=== PATIENT | female | born 1965 | race Caucasian/White ===

== ENCOUNTER 2021-09-20 21:34 | Emergency (ER) | payer BC ==
--- NOTE | 2021-09-20 21:38 | ERPHSYRPT ---
- History of Present Illness Time Seen by Provider: 09/20/21 21:37 Source: patient Exam Limitations: no limitations Physician History: This is a morbidly obese 55-year-old white female who [place] and underwent an excision of left foot neuroma 4 days ago. She now presents with redness and swelling and tenderness of her right foot and ankle. Is a dorsal aspect primarily of her right foot that was not operated on. Patient called her surgeon. Her surgeon told her to go to the emergency department to be evaluated for a DVT. Patient has no cough. She has no shortness of breath. Timing/Duration: today Severity: mild Modifying Factors: Improves With: nothing Associated Symptoms: denies symptoms Allergies/Adverse Reactions: codeine Allergy (Verified 09/20/21 22:02) vortioxetine Allergy (Verified 09/20/21 22:02) zolpidem [From Ambien] Allergy (Verified 09/20/21 22:02) Travel Risk - International Travel Have you traveled outside of the country in past 3 weeks: No - Coronavirus Screening Are you exhibiting any of the following symptoms?: No Close contact with a COVID-19 positive Pt in past 14-21 Days: No - Review of Systems Constitutional: No Symptoms Eyes: No Symptoms Ears, Nose, & Throat: No Symptoms Respiratory: No Symptoms Cardiac: No Symptoms Abdominal/Gastrointestinal: No Symptoms Genitourinary Symptoms: No Symptoms Musculoskeletal: Other (Right foot and ankle pain and swelling and redness) Skin: Other Neurological: No Symptoms (Pain and swelling right foot and ankle) Psychological: No Symptoms Endocrine: No Symptoms Hematologic/Lymphatic: No Symptoms Immunological/Allergic: No Symptoms All Other Systems: Reviewed and Negative - Past Medical History Pertinent Past Medical History: Yes - Past Surgical History Past Surgical History: Yes - Nursing Vital Signs Nursing Vital Signs: Pain Scale Pain Intensity 0 - Physical Exam General Appearance: no apparent distress, alert, anxiety, obese Eye Exam: PERRL/EOMI, eyes nml inspection Neck Exam: normal inspection, non-tender, supple, full range of motion Respiratory Exam: airway intact, No chest tenderness, No respiratory distress Gastrointestinal/Abdomen Exam: No tenderness Pelvic Exam: not done Rectal Exam: not done Back Exam: normal inspection, normal range of motion, No CVA tenderness, No vertebral tenderness Extremity Exam: normal range of motion, pelvis stable, swelling (Right foot and ankle), tenderness (Arch of right foot), other (Redness right foot dorsal aspect into the right ankle) Neurologic Exam: alert, oriented x 3, normal mood/affect, sensation nml Skin Exam: other (See above right foot) Lymphatic Exam: No adenopathy SpO2 Interpretation: normal O2 Delivery: Room Air - Course Nursing assessment & vital signs reviewed: Yes - Progress Progress: unchanged Progress Note: 09/20/21 22:22 Medical decision making: This patient will be anticoagulated with 150 mg subcutaneous Lovenox. Patient will undergo venous Doppler of her right lower extremity tomorrow morning. She is to be at the [facility] area at 9:45 AM. The results will be called to the emergency room physician on-call. Counseled pt/family regarding: diagnosis, need for follow-up - Departure Departure Disposition: Home Clinical Impression: Swelling of right foot, Swelling of right ankle joint Condition: Stable Critical Care Time: No Additional Instructions: Follow-up tomorrow morning at 945 to [facility] to register for your venous Doppler of your right leg. Your test is scheduled for 10 AM. Wait in the emergency room waiting area for the results of this test.
[2021-09-20] MEDS ORDERED: ENOXAPARIN SODIUM SQ ONE (22:19)
== END 2021-09-20 22:37 | disposition home or self-care (01) ==
LOC: ED 21:34
DX: R60.0 Localized edema (principal); M79.671 Pain in right foot; M25.471 Effusion, right ankle
CPT/HCPCS: 96372; 99281; J1650